=== PATIENT | female | born 1955 | race Caucasian/White ===

== ENCOUNTER 2021-04-07 14:18 | Outpatient (CLI) | payer OTHER, SELFPAY ==
[2021-04-07 17:04] LABS: Free T4 Free Thyroxine 0.91 ng/mL (0.78-2.19)
== END 2021-04-07 14:19 | disposition home or self-care (01) ==
LOC: ANHWCLAB 14:20
PROVIDERS: PCP Emergency Medicine; Visit Provider Internal Medicine Endocrinology, Diabetes & Metabolism
DX: E03.9 Hypothyroidism, unspecified (principal)
CPT/HCPCS: 36415; 84439; 84443

== ENCOUNTER 2022-03-26 03:37 | Day surgery (SDC) | payer MEDICARE, MEDICAID, SELFPAY ==
[2022-01-15 12:12] VITALS: BMI 25.2
[2022-02-23 13:14] VITALS: BMI 25.2
--- NOTE | 2022-03-10 13:12 | PC.NURSE ---
Patient denies any changes in health history or medication list since last interview. Updated on instructions and arrival time on DOS.
--- NOTE | 2022-03-25 19:48 | PM.HPGS ---
History of Present Illness History of Present Illness Consent: Risks, benefits, and alternatives have been discussed and questions answered. Patient agrees to proceed with procedure. Chief complaint: positive cologuard Narrative: Milagros Montero is a 66 year old female referred for colon cancer screening Review of Systems Review of Systems: All systems reviewed & are unremarkable except as noted in HPI and below PMFSH Past Medical History Medical History Anxiety Depression Hypothyroidism determined by thyroid function test Family History Family History Sibling Family history of thyroid disease Family history of obesity Family history of diabetes mellitus in first degree relative Father Family history of obesity Family history of kidney disease Family history of diabetes mellitus in first degree relative Family history of heart disease in male family member before age 55 Mother Family history of obesity Cerebrovascular accident Family history of diabetes mellitus in first degree relative Social History Social History Smoking packs per day: 1 Smoking cigarettes per day: 20.0 Years smoked: 50 Smoking pack-years: 50.00 Smoking status: Current every day smoker Tobacco type: cigarettes Alcohol intake: current Alcohol use details: 1 EVERY 6 MONTHS Substance use: current Substance use type: marijuana Other substance usage details: DAILY Living arrangements: alone Spiritual care concerns: No Meds Home Medications and Allergies Home Medications Medication Instructions Recorded Confirmed Type alprazolam 2 mg tablet (Xanax) 2 mg PO BID 03/07/19 02/23/22 History aspirin 81 mg tablet,delayed 81 mg PO DAILY 03/07/19 02/23/22 History release (Adult Low Dose Aspirin) citalopram 20 mg tablet (Celexa) 20 mg PO DAILY 03/07/19 02/23/22 History hydrocodone 10 mg-acetaminophen 1 tablet PO Q8H PRN Pain 03/07/19 03/26/22 History 325 mg tablet ([place]) lamotrigine 100 mg tablet 100 mg PO DAILY 03/07/19 02/23/22 History (Lamictal) simvastatin 20 mg tablet 20 mg PO DAILY 03/07/19 02/23/22 History trazodone 50 mg tablet 100 mg PO ONCE 03/07/19 02/23/22 History docusate sodium 100 mg capsule 100 mg PO DAILY 09/07/19 02/23/22 History (Stool Softener) levothyroxine 75 mcg tablet 75 mcg PO DAILY #90 tabs 04/08/21 03/26/22 Rx Allergies Allergy/AdvReac Type Severity Reaction Status Date / Time bacitracin Allergy Unknown Unknown Verified 03/26/22 08:17 cefaclor Allergy Unknown Unknown Verified 03/26/22 08:17 codeine Allergy Unknown Unknown Verified 03/26/22 08:17 fenofibrate Allergy Unknown Unknown Verified 03/26/22 08:17 lidocaine Allergy Unknown Unknown Verified 03/26/22 08:17 neomycin Allergy Unknown Unknown Verified 03/26/22 08:17 polymyxin B Allergy Unknown Unknown Verified 03/26/22 08:17 FENOFIBRATE NANOCRYSTALLIZED Allergy Severe BODY ACHES Uncoded 03/26/22 08:17 FENOFIBRATE,MICRONIZED Allergy Severe BODY ACHES Uncoded 03/26/22 08:17 Exam Resp: Auscultation: clear to auscultation bilaterally Cardio: Rate: regular rate Rhythm: regular rhythm GI: GI Palp: Yes Soft to palpation and No Tenderness to palpation present (GI) Assessment and Plan Assessment and plan (1) Colon cancer screening: Code(s): Z12.11 - Encounter for screening for malignant neoplasm of colon Status: Acute Assessment and Plan: Colonoscopy with possible biopsy or polypectomy or cautery or injection of substances.
[2022-03-26 08:19] VITALS: BP 133/76; PULSE 75; RESP 18; TEMP 36.6; O2SAT 98
--- NOTE | 2022-03-26 08:30 | WPDANESEPPF ---
Anes - Initial Pre Proc Eval Procedure: Operation Date: 03/26/22 09:30 Proposed Procedures p Colonoscopy - Edward Pearson MD Date/Time: 03/26/22 08:30 Surgeon: Edward Pearson MD Pre Op Diagnosis: positive cologuard Patient Data Age: 66 Gender: F Height: 1.7 m Weight: 73.8 kg Last Vital Signs Temp 97.9 F 03/26/22 08:19 Pulse 75 03/26/22 08:19 Resp 18 03/26/22 08:19 BP 133/76 03/26/22 08:19 Pulse Ox 98 03/26/22 08:19 O2 Del Method Room Air 03/26/22 08:19 Allergies Allergy/AdvReac Type Severity Reaction Status Date / Time bacitracin Allergy Unknown Unknown Verified 03/26/22 08:17 cefaclor Allergy Unknown Unknown Verified 03/26/22 08:17 codeine Allergy Unknown Unknown Verified 03/26/22 08:17 fenofibrate Allergy Unknown Unknown Verified 03/26/22 08:17 lidocaine Allergy Unknown Unknown Verified 03/26/22 08:17 neomycin Allergy Unknown Unknown Verified 03/26/22 08:17 polymyxin B Allergy Unknown Unknown Verified 03/26/22 08:17 FENOFIBRATE NANOCRYSTALLIZED Allergy Severe BODY ACHES Uncoded 03/26/22 08:17 FENOFIBRATE,MICRONIZED Allergy Severe BODY ACHES Uncoded 03/26/22 08:17 Home Medications Medication Instructions Recorded Confirmed Type alprazolam 2 mg tablet (Xanax) 2 mg PO BID 03/07/19 02/23/22 History aspirin 81 mg tablet,delayed 81 mg PO DAILY 03/07/19 02/23/22 History release (Adult Low Dose Aspirin) citalopram 20 mg tablet (Celexa) 20 mg PO DAILY 03/07/19 02/23/22 History hydrocodone 10 mg-acetaminophen 1 tablet PO Q8H PRN Pain 03/07/19 03/26/22 History 325 mg tablet ([place]) lamotrigine 100 mg tablet 100 mg PO DAILY 03/07/19 02/23/22 History (Lamictal) simvastatin 20 mg tablet 20 mg PO DAILY 03/07/19 02/23/22 History trazodone 50 mg tablet 100 mg PO ONCE 03/07/19 02/23/22 History docusate sodium 100 mg capsule 100 mg PO DAILY 09/07/19 02/23/22 History (Stool Softener) levothyroxine 75 mcg tablet 75 mcg PO DAILY #90 tabs 04/08/21 03/26/22 Rx Patient hx anesthesia problems: none Family hx anesthesia problems: none Results Review: All pre-operative results and documents have been reviewed as part of the pre-operative evaluation. [facility] Past Medical History Medical History Anxiety Depression Hypothyroidism determined by thyroid function test Family History Family History Sibling Family history of thyroid disease Family history of obesity Family history of diabetes mellitus in first degree relative Father Family history of obesity Family history of kidney disease Family history of diabetes mellitus in first degree relative Family history of heart disease in male family member before age 55 Mother Family history of obesity Cerebrovascular accident Family history of diabetes mellitus in first degree relative Social History Social History Smoking packs per day: 1 Smoking cigarettes per day: 20.0 Years smoked: 50 Smoking pack-years: 50.00 Smoking status: Current every day smoker Tobacco type: cigarettes Alcohol intake: current Alcohol use details: 1 EVERY 6 MONTHS Substance use: current Substance use type: marijuana Other substance usage details: DAILY Living arrangements: alone Spiritual care concerns: No Anes - Eval Final PreProcedure Day of Procedure 03/26/22 08:30 Patient weight: normal Heart: regular rate and rhythm Lungs: clear to auscultation Airway: Mallampati scale class II Neurological: alert and oriented Last oral intake: >/= 8 hours ASA classification: II Emergent: no Anesthetic plan: proceed Anesthesia type and monitoring: general GIVS and standard monitoring Results Review: All pre-operative results and documents have been reviewed as part of the pre-operative evaluation. Informed Consent: The patient's anesthetic plan and its atte
[2022-03-26] MEDS: LACTATED RINGERS 1,000 ML 150 ML IV CONT (08:31)
[2022-03-26 09:23] VITALS: BP 112/63; PULSE 65; RESP 20; O2SAT 96
[2022-03-26 09:32] VITALS: BP 117/70; PULSE 63; RESP 20; O2SAT 98
[2022-03-26 09:42] VITALS: BP 131/74; PULSE 60; RESP 18; O2SAT 99
== END 2022-03-26 09:51 | disposition home or self-care (01) ==
PROVIDERS: PCP Emergency Medicine; Visit Provider Internal Medicine Gastroenterology
PROC: 0DJD8ZZ Inspection of Lower Intestinal Tract, Via Natural or Artificial Opening Endoscopic (ICD-10-PCS; CPT 45378; principal; 2022-03-26 09:30)
DX: Z12.11 Encounter for screening for malignant neoplasm of colon (principal); K57.30 Diverticulosis of large intestine without perforation or abscess without bleeding; D12.4 Benign neoplasm of descending colon; K64.8 Other hemorrhoids; R19.5 Other fecal abnormalities; F41.9 Anxiety disorder, unspecified; F32.A Depression, unspecified; E03.9 Hypothyroidism, unspecified; Z79.82 Long term (current) use of aspirin; F17.210 Nicotine dependence, cigarettes, uncomplicated; F12.90 Cannabis use, unspecified, uncomplicated
CPT/HCPCS: 45385; 45380; 88305; J2704; J7120

== ENCOUNTER 2022-04-07 13:33 | Outpatient (CLI) | payer MEDICARE, MEDICAID, SELFPAY ==
[2022-04-07 17:04] LABS: Free T4 Free Thyroxine 0.91 ng/mL (0.78-2.19)
== END 2022-04-07 13:34 | disposition home or self-care (01) ==
LOC: ANHWCLAB 13:36
PROVIDERS: PCP Emergency Medicine; Visit Provider Internal Medicine Endocrinology, Diabetes & Metabolism
DX: E03.9 Hypothyroidism, unspecified (principal)
CPT/HCPCS: 36415; 84439; 84443

== ENCOUNTER 2024-09-06 13:37 | Outpatient (CLI) | payer MEDICARE, MEDICAID, SELFPAY ==
--- NOTE | ~2024-09-06 | CT_ITS ---
CT Scan of the Chest without Contrast: Clinical Indication: Lung nodule Technique: Contiguous sections were acquired throughout the chest without intravenous contrast. Dose reduction technique was used on this scan by utilizing automated exposure control and iterative recon struction technique. The dose-length product (DLP) was 70.89 mGy-cm. Findings: There is no evidence of any significant mediastinal, hilar or axillary lymphadenopathy. The mediastin al soft tissues appear normal. There is no evidence of pleural or pericardial effusion. There is minimal erosive change at the right lung apex. There are a few focal subtle groundglass opac ities in the right upper lobe, with a larger amorphous ground glass opacity in the left lower lobe, w hich may be atelectatic change. Images through the upper abdomen reveal no abnormalities. Impression: Ground glass opacity at the left lower lobe with a few additional subtle more focal smaller ground gl ass opacities, predominantly in the right upper lobe. Findings are nonspecific, but likely benign. Co rrelate for pneumonitis. Consider follow-up exam in one year, or after any interval therapy. Reviewed, dictated and finalized at [facility]. Impression: Ground glass opacity at the left lower lobe with a few additional subtle more f ocal smaller ground glass opacities, predominantly in the right upper lobe. Fin dings are nonspecific, but likely benign. Correlate for pneumonitis. Consider f ollow-up exam in one year, or after any interval therapy.
--- OUTSIDE RECORDS SUMMARY | 2024-09-06 15:20 | XMS_ITS | Referral Summary ---
Author Organization [facility] Address [facility] [place] [address] Care Team Providers Care Hospice Executive Director Name Role Phone Lorne Petit MD Primary Care Provider Encounters Date Type Department Care Team Description 08/18/2024 9:15 AM CDT Office Visit [facility] Medical Group Hand Surgery [address] [place] [address] [address] [place] [address] Cari Love MD Trigger middle finger of right hand (Primary Dx) from Last 3 Months Allergies Active Allergy Reactions Criticality Noted Date Comments Bacitracin Nausea only,Hives,Itching Low 12/31/2011 Reaction: nausea, hives, , Reaction: nausea, hives, Codeine Rash Medium 09/01/2010 Rash Fenofibrate Micronized Unknown 12/31/2011 Gramicidin D Nausea only,Hives Reaction: nausea, hives, Lidocaine Rash Medium 08/22/2015 Neomycin Nausea only,Hives,Rash Medium 12/31/2011 Reaction: nausea, hives, Polymyxin B Nausea only,Hives,Rash Medium 02/21/2016 Reaction: nausea, hives, , Reaction: nausea, hives, Medications acyclovir (ZOVIRAX) 400 mg tablet acyclovir 400 mg tablet 02/06/20 15 Active albuterol HFA (PROVENTIL HFA,VENTOLIN HFA,PROAIR HFA) 90 mcg/actuation inhaler Ventolin HFA 90 mcg/actuation aerosol inhaler Active ALPRAZolam (XANAX) 2 mg tablet alprazolam 2 mg tablet 01/16/20 16 Active citalopram (CeleXA) 20 mg tablet citalopram 20 mg tablet 05/30/19 16 Active fluticasone propionate (FLONASE) 50 mcg/actuation nasal spray fluticasone propionate 50 mcg/actuation nasal spray,suspension 12/19/19 16 Active multivitamin with folic acid 400 mcg tablet take one tab orally once per day 06/25/19 21 Active sulfamethoxazo le-trimethopri m (BACTRIM DS) 800-160 mg per tablet sulfamethoxazole 800 mg-trimethoprim 160 mg tablet Active simvastatin (ZOCOR) 20 mg tablet simvastatin 20 mg tablet 12/19/19 16 Active traZODone (DESYREL) 100 mg tablet 11/11/19 22 Active lamoTRIgine (LaMICtal) 100 mg tablet 12/11/19 22 Active HYDROcodone-ac etaminophen (NORCO) 10-325 mg per tablet 12/11/19 22 Active aspirin (ASPIR-81 ORAL) Aspir-81 Active levothyroxine (SYNTHROID) 75 mcg tablet 04/07/19 23 Active Hospital, Clinic, or Other Facility Administered Medication Ordered Dose Route Frequency Start Date End Date Status lidocaine (XYLOCAINE) 10 mg/mL (1 %) injection 1 mLIndications:Admi nistration of Local Anesthesia 1 mL One-Time Injection 08/18/2024 08/18/2024 Ended triamcinolone (KENALOG) 40 mg/mL injection 40 mgIndications:Trig rico middle finger of right hand 40 mg intra-artic One-Time Injection 08/18/2024 08/18/2024 Ended Active Problems Problem Noted Date Diagnosed Date Trigger thumb of left hand 01/01/2021 Social History Tobacco Use Types Packs/Day Years Used Date Smoking Tobacco: Every Day Cigarettes Smokeless Tobacco: Never Tobacco Cessation:Ready to Q uit: Not Asked; Counseling Given: Not Answered Alcohol Use Standard Drinks/Week Comments No 0 (1 standard drink = 0.6 oz pur e alcohol) Comments Unknown Sex and Gender Information Value Date Recorded Sex Assigned at Not on file Legal 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 Gender Identity Not on file Sexual Orientation Not on file Last Filed Vital Signs Vital Sign Reading Time Taken Comments Blood Pressure - - Pulse - - Temperature - - Respiratory Rate - - Oxygen Saturation - - Inhaled Oxygen Concentration - - Weight 77.1 kg (170 lb) 04/14/2022 9:52 AM FOUNDRY TENDER Height 170.2 cm (5' 7) 04/14/2022 9:52 AM FOUNDRY TENDER Body Mass Index 26.63 04/14/2022 9:52 AM FOUNDRY TENDER Plan of Treatment Not on file Procedures Procedure Name Priority Date/Time Associated Diagnosis Comments OK INJECTION 1 TENDON SHEATH/LIGAMENT APONEUROSIS Routine 08/18/2024 9:15 AM CDT Trigger middle finger of right hand from Last 3 Months Results * OK INJECTION 1 TENDON SHEATH/LIGAMENT APONEUROSIS (08/18/2024 9:15 AM CDT) Narrative Cari Love MD - 08/18/2024 9:15 AM CDT Cari Love MD 09/04/2024 1:22 PM Hand / Upper Extremity Arthrocentesis: R long A1 Performed by: Cari Love MD Authorized by: Cari Love MD Consent Given by: Patient Site marked: the procedure site was marked Timeout: prior to procedure the correct patient, procedure, and site was verified Verbal consent obtained?: Yes Written consent obtained?: No Indications: Pain Condition: trigger finger Location: Long finger Site: R long A1 Prep: patient was prepped and draped in usual sterile fashion Prep: patient was prepped using a clean technique Medications Right Long Injection: 1 mL lidocaine 10 mg/mL (1 %); 40 mg triamcinolone 40 mg/mL us Cari Love MD IN CLINIC/BEDSIDE ORDERAB LES Final Result from Last 3 Months Insurance [facility] Address: [address] [address] [place] [address] [employer] MEDICARE ADVANTAGE [facility] Address: [address] [address] [place] [address] MEDICARE ADVANTAGE [facility] Address: [address] [address] [place] [address] Care Teams Hospice Executive Director Relationship Specialty Start Date End Date Lorne Petit MD [facility] - General 06/16/10
--- OUTSIDE RECORDS SUMMARY | 2024-09-06 15:20 | XMS_ITS | Clinical Summary ---
Author Organization [facility] Address [facility] [place] [address] Care Team Providers Care Head Field Hockey Coach Name Role Phone Lorne Petit MD Primary Care Provider + [phone] Allergies Active Allergy Reactions Criticality Noted Date [...] Date Trigger thumb of left hand 01/01/2021 Encounters Date Type Department Care Team Description 08/18/2024 9:15 AM CDT Office Visit [facility] Medical Group Hand Surgery [address] [place] [phone] Cari Love MD Trigger middle finger of right hand (Primary Dx) from Last 3 Months Surgical History Surgery Date Site/Laterality Comments CERVICAL CONIZATION W/ LASER cervical conization KIDNEY SURGERY 1981 kidney surgery TUBAL LIGATION 1989 Bilateral tubal ligation OTHER SURGICAL HISTORY 2009 tendon sheath OTHER SURGICAL HISTORY 2011 ductogram Medical History Medical History Date Comments Depression Hypothyroid Family History Medical History Relation Name Comments Coronary artery disease Father Sushil nary artery disease; Diabetes Father Diabetes mellit us; Thyroid disease Father thyroid diso rder; Cancer Mother Cancer -; Diabetes Mother Diabetes mellit us; Hypertension Mother Hypertension; Stroke Mother Stroke; Thyroid disease Mother thyroid diso rder; Diabetes Other Family history of Diabetes mellitus; Hypertension Other Family history of Hypertension; Other Other Family history of Cancer -bone; Thyroid disease Other Family histo ry of thyroid disorder; Relation Name Status Comments Father Mother Other Social History Tobacco Use Types Packs/Day Years [...] on file 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 Gender Identity Not on file Sexual Orientation Not on file Obstetrics History Last Filed Vital Signs Vital Sign Reading Time Taken Comments Blood Pressure - - Pulse - - Temperature - - Respiratory Rate - - Oxygen Saturation - - Inhaled Oxygen Concentration - - Weight 77.1 kg (170 lb) 04/14/2022 9:52 AM DENTAL TECHNICIAN Height 170.2 cm (5' 7) 04/14/2022 9:52 AM DENTAL TECHNICIAN Body Mass Index 26.63 04/14/2022 9:52 AM DENTAL TECHNICIAN Plan of Treatment Health Maintenance Due Date Last Done Comments Breast Cancer Screening-Mammogram 1956 Colon Cancer Screening-Colonoscopy 1956 Depression Screening 1956 Fall Risk Assessment 1956 Hepatitis C Screening 1956 Osteoporosis Screening-Bone Density Scan 1956 Hepatitis B Screening 1974 Pneumococcal vaccine 65+ (1 of 2 - PCV) 10/25/1975 Zoster Vaccine (1 of 2) 2006 Well Visit 65+ 2021 Covid-19 Vaccine (2 - season) 11/21/202310/2020 Influenza Vaccine (Season Ended) 2024 03/27/19 21 DTaP/Tdap/Td Vaccine (2 - Td or Tdap) 03/27/203008/2020 Procedures Procedure Name Priority Date/Time Associated Diagnosis Comments [place] INJECTION 1 TENDON SHEATH/LIGAMENT APONEUROSIS Routine 08/18/2024 9:15 AM CDT Trigger middle finger of right hand from Last 3 Months Results * [place] INJECTION 1 TENDON SHEATH/LIGAMENT APONEUROSIS (08/18/2024 9:15 [...] Final Result from Last 3 Months Insurance [employer] MEDICARE ADVANTAGE [employer] MED[employer]ARE ADVANTAGE MEDICARE ADVANTAGE Care Teams Head Field Hockey Coach Relationship Specialty Start Date End Date Lorne Petit MD PCP - General 06/16/10
--- OUTSIDE RECORDS SUMMARY | 2024-09-06 15:20 | XMS_ITS | Data Portability ---
Author Organization [facility] LEWISMo Address [address] [facility] [place] [address] Care Team Providers Care Scoop Machine Operator Name Role Phone COOPRE VILLA Zyglo Inspector Assessment Encounter Date Assessment Date Assessment LastModified by Organization Details LastModified Time 11/08/2019 11/08/2019 KWABENA Hernandez PA-S Not available 11/08/2019 11:16:03 Plan of Treatment Reminders Order Date Submit Date Provider Last Modified By Organization Details Last Modified Time Details Appointments None recorded. Lab urinalysi s, dipstick 2019 020 [email or web address] 1 In-Office Order, Internal Use Only DO Not Attach Compendium DO Not Attach Compendium, Do Not Delete/merge, [id number] 0 11:50:13 unlisted lab - igp,aptim a HPV,age gdln 2019 020 SABINO [facility], [address] Little, [address], [address], 0 14:11:08 bacterial vaginosis panel, vaginal 2019 020 SABINO [facility] (Centralized Electronic Ordering - All Locations), Patient Can Go To The Location Of Their Choice, [id number] 0 14:09:13 Referral None recorded. Procedures None recorded. Surgeries None recorded. Imaging MAMMO, screening , bilateral 2019 020 [facility] ([facility]), [address] [place], [address], 1 14:37:36 Medication Orders multivita min tablet 2019 020 [email or web address] 1 Not available 0 11:50:13 Calcium with Vitamin D 600 mg-10 mcg (400 unit) tablet 2019 020 [email or web address] 1 Not available 0 11:50:14 acyclovir 800 mg tablet 2019 020 [email or web address] 1 Not available 0 11:50:14 nystatin 100,000 unit/gram topical cream 2019 020 INTERFACE Not available 0 11:52:32 Patient TargetsNo targets recorded. Patient Instructions Encounter Date Encounter Id Patient Instructions Last Modified By Organization Details Last Modified Time 07/14/2019 [id number] Reviewed the following recommendations: -Stay home and separate from others as much as possible. -Monitor your symptoms and seek medical attention for trouble breathing, persistent chest pain, confusion, or bluish lips or face. -Wear a mask if you must be around other people. -Wash your hands often for 20 seconds with soap and water and clean high-touch surfaces daily -You may discontinue home isolation if your symptoms are improving, it has been 7 days since symptoms started, and you have been fever free for at least 3 days. [email or web address] Not available 07/14/2019 12:05:48 11/08/2019 [id number] well visit, wome n 50 to 65: care instructions Not available 11/08/2019 11:50:14 folliculitis: care instructions Not available 11/08/2019 11:52:30 candidiasis: car e instructions Not available 11/08/2019 11:52:30 mammogram: about this test Not available 11/08/2019 11:50:14 bladder training : care instructions Not available 11/08/2019 17:29:45 Reason for Referral None Reported. Results Created Date Observation Date Name Description Value Unit Range Abnormal Flag Note LastModifiedBy Organization Detail LastModifiedTime 11/08/19 20 11/08/2019 urina lysis , dipst ick Leukocytes Trace Not Available In-Offi ce Order Internal Use Only DO Not Attach Compendium DO Not Attach Compendium, Do Not Delete/merge, [facility] 11/08/2019 10:15:15 11/08/19 20 11/08/2019 urina lysis , dipst ick Nitrite negati ve Not Available In-Office Order Internal Use Only DO Not Attach Compendium DO Not Attach Compendium, Do Not Delete/merge, [facility] 11/08/2019 10:15:15 11/08/19 20 11/08/2019 urina lysis , dipst ick Urobilinogen .2 Not Available In-Of fice Order Internal Use Only DO Not Attach Compendium DO Not Attach Compendium, Do Not Delete/merge, [id number] 11/08/2019 10:15:15 11/08/19 20 11/08/2019 urina lysis , dipst ick Protein Negati ve Not Available In-Office Order Internal Use Only DO Not Attach Compendium DO Not Attach Compendium, Do Not Delete/merge, 11/08/2019 10:15:15 11/08/19 20 11/08/2019 urina lysis , dipst ick pH 5.5 Not Available In-Office Order Internal Use Only DO Not Attach Compendium DO Not Attach Compendium, Do Not Delete/merge, [id number] 11/08/2019 10:15:15 11/08/19 20 11/08/2019 urina lysis , dipst ick Blood Non-He molyze d: Trace Not Available In-Office Order Internal Use Only DO Not Attach Compendium DO Not Attach Compendium, Do Not Delete/merge, [facility] 11/08/2019 10:15:15 11/08/19 20 11/08/2019 urina lysis , dipst ick Specific [place] 1.030 Not Available In-Off ice Order Internal Use Only DO Not Attach Compendium DO Not Attach Compendium, Do Not Delete/merge, 11/08/2019 10:15:15 11/08/19 20 11/08/2019 urina lysis , dipst ick Ketone Trace Not Available In-Office Order Internal Use Only DO Not Attach Compendium DO Not Attach Compendium, Do Not Delete/merge, [facility] 11/08/2019 10:15:15 11/08/19 20 11/08/2019 urina lysis , dipst ick Bilirubin Small Not Available In-Offic e Order Internal Use Only DO Not Attach Compendium DO Not Attach Compendium, Do Not Delete/merge, [id number] 11/08/2019 10:15:15 11/08/19 20 11/08/2019 urina lysis , dipst ick Glucose Negati ve Not Available In-Office Order Internal Use Only DO Not Attach Compendium DO Not Attach Compendium, Do Not Delete/merge, [id number] 11/08/2019 10:15:15 11/08/19 20 11/08/2019 pap, IG + refle x HPV age gdln acog testing 30-65 Not Available [facility] ([facility]) [address] [facility], [place], [address], 11/10/2019 14:11:08 11/08/19 20 11/10/2019 pap, IG + refle x HPV diagnosis: Aaron lennon NEGAT YAMEL FOR INTRA EPITH ELIAL CALVIN Lora OR BRITTANY ZELAYA . Not Available [facility] ([facility]) [address] [facility], [place], [address], 11/10/2019 14:11:08 11/08/19 20 11/10/2019 pap, IG + refle x HPV specimen adequacy: Aaron lennon Satis facto ry for evalu ation . No endoc ervic al compo nent is ident ified . Not Available [facility] ([facility]) [address] [facility], [place], [address], 11/10/2019 14:11:08 11/08/19 20 11/10/2019 pap, IG + refle x HPV clinician provided ICD10: Aaron lennon Z01.4 19 Z11.3 Not Available [facility] ([facility]) [address] [facility], [place], [address], 11/10/2019 14:11:08 11/08/19 20 11/10/2019 pap, IG + refle x HPV performed by: Aaron cornejo Cytot manna lennon (ASCP ) Not Available [facility] ([facility]) [address] [facility], [place], [address], 11/10/2019 14:11:08 11/08/19 20 11/10/2019 pap, IG + refle x HPV . . Not Available [facility] ([facility]) [address] [facility], [place], [address], 11/10/2019 14:11:08 11/08/19 20 11/10/2019 pap, IG + refle x HPV note: Commen t The Pap smear is a scree abi test desig nilam to aid in the detec tion of rigoberto ligna nt and malig nant condi tions of the uteri ne cervi x. It is not a diagn ostic proce dure and shoul d not be used as the sole means of detec ting cervi yara cance r. Both false -posi tive and false -nega tive repor ts do occur . Not Available [facility] ([facility]) [address] [facility], [place], [address], 11/10/2019 14:11:08 11/08/19 20 11/10/2019 pap, IG + refle x HPV test methodology: Commen t This liqui d based ThinP rep(R ) pap test was scree nilam with the use of an image guide d systkendal m. Not Available [facility] ([facility]) [address] [facility], [place], [address], 11/10/2019 14:11:08 11/08/19 20 11/10/2019 pap, IG + refle x HPV HPV aptima Negati ve negati ve This nucle ic acid ampli ficat ion test detec ts fourt een high- risk HPV types (16,1 8,31, 33,35 ,39,4 5,51, 52,56 ,58,5 9,66, 68) witho ut diffe renti ation . Not Available [facility] ([facility]) [address] [facility], [place], [address], 11/10/2019 14:11:08 11/08/19 20 11/10/2019 bacte rial vagin osis panel , vagin al trich vag by HEBERT Negati ve negati ve Not Available [facility] ([facility]) [address] [place], [address], 11/11/2019 14:09:13 11/08/19 20 11/10/2019 bacte rial vagin osis panel , vagin al chlamydia trachomatis, HEBERT Negati ve negati ve Not Available [facility] ([facility]) [address] [place], [address], 11/11/2019 14:09:13 11/08/19 20 11/10/2019 bacte rial vagin osis panel , vagin al neisseria gonorrhoeae, HEBERT Negati ve negati ve Not Available [facility] ([facility]) [address] [place], [address], 11/11/2019 14:09:13 11/08/19 20 11/11/2019 bacte rial vagin osis panel , vagin al atopobium vaginae Low - 0 score Not Available [facility] ([facility]) [address] [place], [address], 11/11/2019 14:09:13 11/08/19 20 11/11/2019 bacte rial vagin osis panel , vagin al bvab 2 Low - 0 score Not Available [facility] ([facility]) [address] [place], [address], 11/11/2019 14:09:13 11/08/19 20 11/11/2019 bacte rial vagin osis panel , vagin al megasphaera 1 Low - 0 score Calcu late total score by seb castillo the 3 indiv idual bacte rial vagin osis (BV) marke r score s toget her. Total score is inter prete d as follo ws: Total score 0-1: Indic ates the absen ce of BV. Total score 2: Indet melissain ate for BV. Addit ional clini yara data shoul d be evalu ated to estab dieter a diagn osis. Total score 3-6: Indic ates the prese nce of BV. This test was devel oped and its perfo rmanc e victorino cteri stics deter mined by [facility]. It has not been clear ed or appro yaakov by the Food and Drug Admin istra tion. The FDA has deter mined that such clear ance or appro ivone is not neces chaim. Not Available [facility] ([facility]) [address] [place], [address], 11/11/2019 14:09:13 11/08/1911/11/2019 bacte rial vagin osis panel , vagin al katerine albicans, HEBERT Negati ve negati ve Not Available [facility] ([facility]) [address] [place], [address], 11/11/2019 14:09:13 11/08/19 20 11/11/2019 bacte rial vagin osis panel , vagin al katerine glabrata, HEBERT Negati ve negati ve Not Available [facility] ([facility]) [address] [place], [address], 11/11/2019 14:09:13 11/08/1911/11/2019 bacte rial vagin osis panel , vagin al hsv 1 HEBERT Negati ve negati ve Not Available [facility] ([facility]) [address] [place], [address], 11/11/2019 14:09:13 11/08/1911/11/2019 bacte rial vagin osis panel , vagin al hsv 2 HEBERT Negati ve negati ve Not Available [facility] ([facility]) [address] [place], [address], 11/11/2019 14:09:13 Result Notes None recorded. Problems Name Problem SNOMED Code Status Onset Date Resolution Date Notes Provider Name and Address Organization Details Recorded Time Folliculitis 98176476 Active Colt mejia, [facility] 5 01:25:45 Problem Notes None recorded. Procedures Surgical History Date Name Laterality Status Provider Name and Address Organization Details Recorded Time 0 Date of Last Pap Smear completed Linnette Lawler MA [facility] 11/08/2019 11:01:00 0 Tubal Ligation completed Linnette Lawler MA [facility] 11/08/2019 11:06:45 3 procedure on kidney completed Linnette Lawler MA [facility] 11/08/2019 11:06:23 Imaging Results None recorded. Procedure Notes None recorded. Medical Equipment None Reported. Allergies No known drug allergies Medications Name Sig Start Date Stop Date Status Note LastModified by Organization Details LastModified Time multivitami n tablet Take 1 tablet every day by oral route. 2019 active Not Available Not Available Not Avai lable acyclovir 400 mg tablet active Not Available Not Available Not Available hydrocodone 10 mg-acetamin ophen 325 mg tablet active Not Available Not Available No t Available acyclovir 800 mg tablet Take 1 tablet every day by oral route. 2019 active Not Available Not Available Not Avai lable levothyroxi ne 75 mcg tablet active Not Available Not Available Not Available citalopram 20 mg tablet active Not Available Not Available Not Available trazodone 100 mg tablet active Not Available Not Available Not Available levothyroxi ne 50 mcg tablet 11/07 completed Not Available Not Available Not Available simvastatin 20 mg tablet active Not Available Not Available Not Available nystatin 100,000 unit/gram topical cream APPLY TO THE AFFECTED AREA(S) BY TOPICAL ROUTE 2 TIMES PER DAY 2019 active Not Available Not Available Not Avai lable alprazolam 2 mg tablet active Not Available Not Available Not Available fluticasone propionate 50 mcg/actuati on nasal spray,suspe nsion active Not Available Not Available Not Available lamotrigine 100 mg tablet active Not Available Not Available Not Available Bactrim DS 800 mg-160 mg tablet Take 1 tablet every 12 hours by oral route. 11/07 completed Not Available Not Available Not Available Calcium with Vitamin D 600 mg-10 mcg (400 unit) tablet Take 1 tablet twice a day by oral route. 2019 active Not Available Not Available Not Avai lable Vitals Date Recorded Body height Body mass index (BMI) Body weight Heart rate Body temperature Oxygen saturation Oxygen saturation in Arterial blood by Pulse oximetry Systolic blood pressure Diastolic blood pressure Provider Name and Address Organization Details Last Updated DateTime 0 170.18 cm 26.5 kg/m2 62893.1 1 g 66 /min 98.3 [degF] 94 % 94 % 120 mm[Hg] 76 mm[Hg] Linnette Lawler MA [facility] 0 11:13:53 Social History Question Answer Notes LastModified by Organizat ion Details LastModified Time Tobacco Smoking Status Current Every Day Smoker Linnette Lawler MA null, [facility] 11/08/2019 11:03:09 Do You Have An Advance Directive? No Information not available 11/08/2019 Is Blood Transfusion Acceptable In An Emergency? Yes Information not available 11/08/2019 What Is Your Level Of Caffeine Consumption? Moderate Information not available 11/08/2019 How Much Tobacco Do You Chew? None Information not available 11/08/2019 What Type Of Diet Are You Following? REGULAR Information not available 11/08/2019 Which Illicit Or Recreational Drugs Have You Used? Marijuanna Information not available 11/08/2019 Education 4 Year College Informatio n not available 11/08/2019 Live Alone Or With Others? Alone Information not available 11/08/2019 What Was The Date Of Your Most Recent Tobacco Screening? 11/08/2019 Information not available 11/08/2019 How Many Children Do You Have? 2 Information not available 11/08/2019 Performs Monthly Self-breast Exam? Yes Information no t available 11/08/2019 What Is Your Relationship Status? Information not available 11/08/2019 Seat Belts Used Routinely Yes Information not available 11/08/2019 Are You Sexually Active? No Information not available 11/08/2019 At What Age Did You Start Smoking Tobacco? 14 Information not available 11/08/2019 How Much Tobacco Do You Smoke? 1 PPD Information not available 11/08/2019 General Stress Level Medium Information not available 11/08/2019 Do You Use Sunscreen Routinely? Yes Information not available 11/08/2019 On What Date Was Tobacco Cessation Counseling Provided? 11/08/2019 Information not available 11/08/2019 How Many Years Have You Smoked Tobacco? 50 Information not available 11/08/2019 Sex: Unknown Functional Status Question Answer Note LastModified by Organizat ion Details LastModified Time What is your level of alcohol consumption? Occasional Information not available 11/08/2019 Do you or have you ever used smokeless tobacco? Never used smokeless tobacco Information not available 11/08/2019 Are you currently employed? No Information not available 11/08/2019 What is your occupation? Retired Information not available 11/08/2019 Do you or have you ever used e-cigarettes or vape? Never used electronic cigarettes Information not available 11/08/2019 What is your exercise level? Moderate Information not available 11/08/2019 Mental Status None recorded. Family History Nothing Reported. Medical History Condition Response Coronary Artery Disease N High Blood Pressure N Atrial Fibrillation N COPD N Depression Y Anxiety Disorder Y Acid Reflux (GERD) N Cancer High Cholesterol Y Thyroid Problems Y Kidney or Bladder Problems Y Anemia N Heart Attack (MD) N Diabetes N Asthma N Allergies Y Hepatitis Y Heart Failure N Osteoporosis Y Gynecological History Statement/Question Response If Post Menopausal, Age at Menopause 51 Date of Last Mammogram Menses Monthly N STIs/STDs Y Date of Last Pap Smear 11/08/2019 Current Control Method Menopause Obstetrics History GPAL:G 0 P 0 0 0 0 Past Encounters Encounter ID Performer Location Encounter Start Date Encounter Closed Date Diagnosis/Indication Diagnosis SNOMED-CT Code Diagnosis ICD10 Code Diagnosis Note [id number] MD Sakshi Baez [address] [place] [address] 07/14/2019 10:35:02 07/17/2019 07:59:36 Risk of exposure to communicable disease 195900913 Z20.9 [id number] EZE BONNER ([employer]) [address] [place] [address] 11/08/2019 10:12:43 11/09/2019 08:57:24 Gynecologic examination 65720771 Z01.419 -clinical breast & pelvic examinatio ns completed today, rash c/w candidiasi s in gluteal cleft with small healing ingrown hair. -cervical cancer screening due: Pap performed. (h/o dysplasia s/p conization .) -referral for screening mammogram issued for routine breast cancer screening -routine nuswab completed, treat as needed -Educated osteoporos is prevention including calcium rich diet, weight bearing exercise. Will start supplement . 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 Pt on suppressiv e acyclovir. Candidal intertrigo 2661 74267 B37.2 Erythemato us rash noted to perineum and perianal area. Advised patient to apply Nystatin cream for relief of symptoms to avoid concurrent infection. Try to keep area clean and dry. Change pads frequently . Superficia l folliculitis 594121942 L73.9 Area near the right gluteal cleft appears to be well healing and not draining at this time. Advised washing area thoroughly and daily and to keep area clean and dry. RTC with worsening infection. Urinary incontinence 165 717245 R32 Chronic. Pt has been evaluated by urology and reports urinary retention. Discussed kegel exercises and bladder training. Health Concerns Section Related Observation LastModified by Organization Detai ls LastModified Time None Recorded Concern Status LastModified by Organization Details LastModified Time None Recorded Advance Directives Directive N: Payers Insurance Date Sequence Insurance Name Policy Number Policy [place] Covered Member ID [place] Member ID Guarantor Name 10/20/[address] [facility] PRIOR TO 09/19/2020 (MEDICAID REPLACEMENT - HMO) Milagros Montero [id number] Milagros Montero 10/20/2019 1 *SELF PAY* Eze Montero 11/05/2019 [facility] PRIOR TO 09/19/2020 (MEDICAID REPLACEMENT - HMO) Milagros Montero [id number] Milagros Montero Notes Date Note Type Note Provider Name and Address Organization Details Recorded Time 07/14/2019 text/html COVID ScreeningReported bypatient.Onset/Durati on of fever:no fever Associated Symptoms:no cough; no shortness of breathCOVID-19 SymptomsReported bypatient.COVID-19 Signs and Symptomscough resolved; fever resolved; shortness of breath resolved Contacts and Exposureclose contact with a confirmed or suspected case of COVID-19 (pt states that a individual came into the [employer] where she was and they were talking that was positive for COVID-19) Associated Symptoms:no sputum production; no shortness of breath; no wheezing; no fever; no runny nose; no sore throat; no vomiting; no diarrhea; no body aches; no nausea; no change in mental status; no hypotension; no tachycardia MATT DELACRUZ NP Attn: Accounting,[address] [place], [address], [facility] 07/14/2019 12:06:04 11/08/2019 text/html Annual GYNReport ed bypatient.Urinary symptoms:No hematuria;Incontinence ;Stress incontinence;Nocturia Vulva:No genital lesion Vagina:Normal vaginal discharge Breast:No breast pain; No breast lump; No nipple discharge Current Contraception:Not sexually active Sexual complaints:No sexual complaints Menopausal Symptoms:Inadequacy of lubrication of vaginal mucosa Psychological symptoms:No depression; No anxiety; No PMDD Preventive measures:Encourage regular exercise; Encourage no tobacco use; History of abnormal pap smear/cervical dysplasia; Needs to schedule mammogram 64 y/o F with PMHx of HSV, HAYDEE, and 50 pack-year smoking history presents to clinic for annual well woman examination. Patient reports she has not had a pap done in approximately 4 years. She states she had active dysplasia before I was 26 y/o that was treated via conization. Patient states her last few paps that were completed were all normal. She endorses some chronic urinary incontinence over the past 20 years or so. She has been followed up with urology on the issue who told her she would have to deal with the issue as she was not a candidate for a bladder sling. She reports she has 7 cc of PVR urine. She notes some incontinence with coughing, standing up, and during the night. She always wears a pad because of this. She states that her urinary incontinence improves when she loses weight and it doesn't bother her. Patient endorses some burning with urination that lasted approx a week that resolved completely 2-3 weeks ago. Reports she had some irritation to the left side of her vagina during these sxs; now resolved. Notes she has had an ingrown hair over the past 3-4 days near her right gluteal cleft. She notes she has not expressed the lesion herself, but that it popped on its own. Reports bloody drainage. Pain is worsened with wiping and sitting. Denies fever, chills, and changes in size of the lesion. She admits to vaginal dryness, but since she is not sexually active, it is not noticeable. Denies bleeding, discharge, night sweats, and hot flashes. Denies outbreak of her HSV in the past and takes Acyclovir as prophylactic. EZE BONNER Attn: Accounting,[address] [place], [address], [facility] 11/08/2019 17:31:16 OBGyn Episode Ob Episode Information Episode Created Date Number of Fetuses Patient Bloodtype Patient rh Status Prepregnancy Weight lbs Domestic Partner Domestic Partner Phone Father Name Case Resource Manager Status 11/08/19 20 1 CLOSED Fetus Data First Name Last Name Admitted to NICU Weight (g) Sex Living Outcome Pediatric Complications Fetus ID Race Codes Race Delivery Type 3628.73 6 F Full Term [id number] Vaginal Tan Calculation Initial Tan Date Initial Exam Date Initial Exam Provider Initial Ultrasound Date Last Menstrual Period Date Ultra Sound Weeks Gestation 0 Eighteen To Twenty Week Tan Update Ultra Sound Date Fundal Height At Umbil Quickening Date Ultra Sound Latest Weeks Gestation Final Tan Confirmed By Final Tan Confirmed Date Final Tan Date Ultra Sound Latest Days Gestation 0 0 Menstrual History Last Menstrual Date Menses Monthly On Bcp Conception Prior Menses Frequency Hcg Plus Date Menarche Onset Age Delivery Information Delivery Date Delivery Type Labor Anesthesia Weeks Gestation Incision Type Labor Labor Length Hrs Delivered By Post Complications Tubal Sterilization Discharge Date Comments 7 Discharge Information Feeding Method Contraceptive Method Maternal HG B and HCT Levels Ob Episode Information Episode Created Date Number of Fetuses Patient Bloodtype Patient rh Status Prepregnancy Weight lbs Domestic Partner Domestic Partner Phone Father Name Case Resource Manager Status 11/08/19 20 1 CLOSED Fetus Data First Name Last Name Admitted to NICU Weight (g) Sex Living Outcome Pediatric Complications Fetus ID Race Codes Race Delivery Type 3175.14 4 M Full Term [id number] Vaginal Tan Calculation Initial Tan Date Initial Exam Date Initial Exam Provider Initial Ultrasound Date Last Menstrual Period Date Ultra Sound Weeks Gestation 0 Eighteen To Twenty Week Tan Update Ultra Sound Date Fundal Height At Umbil Quickening Date Ultra Sound Latest Weeks Gestation Final Tan Confirmed By Final Tan Confirmed Date Final Tan Date Ultra Sound Latest Days Gestation 0 0 Menstrual History Last Menstrual Date Menses Monthly On Bcp Conception Prior Menses Frequency Hcg Plus Date Menarche Onset Age Delivery Information Delivery Date Delivery Type Labor Anesthesia Weeks Gestation Incision Type Labor Labor Length Hrs Delivered By Post Complications Tubal Sterilization Discharge Date Comments 5 40 Discharge Information Feeding Method Contraceptive Method Maternal HG B and HCT Levels
== END 2024-09-06 13:38 | disposition home or self-care (01) ==
PROVIDERS: PCP Emergency Medicine; Visit Provider Emergency Medicine
DX: R91.1 Solitary pulmonary nodule (principal)
CPT/HCPCS: 71250